=== PATIENT | male | born 1960 | race Two or more races ===

== ENCOUNTER 2019-05-23 12:46 | Emergency (ER) | payer OTHER ==
[~2019-05-23] VITALS: Ht 165.1 cm; Wt 101.2 kg
[2019-05-23] MEDS ORDERED: ALTACE10 MG (13:38)
[2019-05-23] MEDS ORDERED: LANTUS (13:39)
== END 2019-05-23 17:36 | disposition home or self-care (01) ==
LOC: ER 12:46
DX: I16.0 Hypertensive urgency (principal); I10 Essential (primary) hypertension

== ENCOUNTER 2019-11-11 13:29 | Emergency (ER) | payer OTHER ==
[~2019-11-11] VITALS: Ht 165.1 cm; Wt 102.1 kg
[~2019-11-11 13:29] MED LIST: ALTACE10 MG; LANTUS
== END 2019-11-11 14:55 | disposition home or self-care (01) ==
LOC: ER 13:29
DX: H60.8X1 Other otitis externa, right ear (principal)